=== PATIENT | female | born 1940 | race Caucasian/White ===

== ENCOUNTER 2016-07-22 04:50 | Inpatient (IN) | payer OTHER ==
[2016-06-30 10:44] VITALS: BMI 27.0
--- NOTE | 2016-06-30 11:12 | PAT Medication Instructions ---
Service Date Jun 30, 2016. Current Home Medication List Aspirin (Aspirin Ec), 81 MG PO QPM Atorvastatin (Lipitor), 20 MG PO QPM Cholecalciferol (Vitamin D3), 1 TAB PO QAM Fish Oil (Malvern-3), 1,000 MG PO QAM Ibuprofen (Advil), 200 MG PO TID PRN for RN Multivitamin (Multivitamin), 1 TAB PO QAM Pantoprazole (Protonix), 40 MG PO QPM Resveratrol (Resveratrol), 100 MG PO QPM Sitagliptin-Metformin Hcl (Janumet), 1 TAB PO BID Valsartan (Diovan), 160 MG PO QPM Medication Instructions For Your Scheduled Surgery - Hold the following medications 10 days prior to surgery: Fish Oil (Mal[place]-3), 1,000 MG PO QAM Ibuprofen (Advil), 200 MG PO TID PRN for RN (per surgeon instructions) Resveratrol (Resveratrol), 100 MG PO QPM - Hold the following medications 48 hours prior to surgery: Sitagliptin-Metformin Hcl (Janumet), 1 TAB PO BID - Hold the following medications evening prior to surgery: Valsartan (Diovan), 160 MG PO QPM - Hold the following medications the morning of surgery: Multivitamin (Multivitamin), 1 TAB PO QAM Cholecalciferol (Vitamin D3), 1 TAB PO QAM - Take the following medications as scheduled the night before surgery: Pantoprazole (Protonix), 40 MG PO QPM Atorvastatin (Lipitor), 20 MG PO QPM Aspirin (Aspirin Ec), 81 MG PO QPM If you have any questions please call us at [phone] or [phone] ( [place]) or [phone]
[2016-06-30 11:42] LABS: BASO % 0.6 %; BASO ABS # 0.06 K/uL (0-0.2); COMPLETE YES; EOS % 2.1 %; HEMATOCRIT 39.5 % (37-47); IG% 0.3 %; LYMPH % 26.8 %; LYMPH ABS # 2.84 K/uL (1.2-3.4); MEAN CELL VOLUME 84.8 fL (80-100); MEAN CORPUSCULAR HGB CONC 34.2 g/dl (32-36); MEAN PLATELET VOLUME 9.6 fL (7.4-10.4); MONO % 9.7 %; NEUT % 60.5 %; PLATELET COUNT 286 K/uL (130-400); RED BLOOD COUNT 4.66 M/uL (4.2-5.4); WHITE BLOOD COUNT 10.59 K/uL (4.8-10.8)
[2016-06-30 11:44] LABS: URINE APPEARANCE CLEAR (CLEAR); URINE BILIRUBIN NEG (NEG); URINE COLOR YELLOW; URINE EPITHELIAL CELL AUTO 0-5 /lpf (0-5); URINE NITRITE NEG (NEG); URINE PH 5.5 (4.5-7.5); URINE SPECIFIC GRAVITY 1.002 (1.000-1.030); UROBILINOGEN NEG (NEG); ZZUR CULT IF INDIC CLEAN CATCH YES
[2016-06-30 11:58] LABS: MANUAL MICROSCOPIC REQUIRED? NO; REVIEW REQ? NO
[2016-06-30 11:58] LABS: PROTHROMBIN TIME (PATIENT) 10.6 SECONDS (9.0-12.0)
--- NOTE | 2016-06-30 12:02 | DIAGNOSTIC IMAGING REPORT ---
CHEST PREADMISSION(PA/LAT) CLINICAL HISTORY: PAT preoperative evaluation COMPARISON STUDY: No previous studies for comparison. FINDINGS: The bones soft tissues and hemidiaphragms are normal. The cardiomediastinal silhouette is normal. The lungs are clear. The pulmonary vasculature is normal. IMPRESSION: Negative chest. Electronically signed by: Rex Ochoa M.D. 06/30/2016 12:00 PM Dictated Date/Time: 06/30/2016 12:00 PM
--- NOTE | 2016-07-08 14:49 | HISTORY & PHYSICAL EXAMINATION ---
DATE OF ADMISSION: 07/22/2016 PROCEDURE: Right knee replacement. HISTORY OF PRESENT ILLNESS: Claudette is a pleasant 75-year-old female who presents for preoperative evaluation prior to right knee replacement. Claudette states she has been having pain in this knee for several years now, which has gradually worsened. It has not gotten to the point it is affecting her daily activities including walking, standing, going up and down steps. She has taken oral anti-inflammatories without relief. She has also tried Supartz with no relief. At this point in time, has failed conservative measures and would like to proceed with a right knee replacement. PAST MEDICAL HISTORY: 1. Hypertension. 2. High cholesterol. 3. Diabetes. 4. GERD. ALLERGIES: No known drug allergies. CURRENT MEDICATIONS: 1. Pantoprazole 40 mg daily. 2. Multivitamin. 3. Atorvastatin 20 mg daily. 4. Janumet 50/500 mg twice a day. 5. Diovan 320 mg daily. 6. Vitamin D3. 7. Aspirin 81 mg daily. PAST SURGICAL HISTORY: 1. Bunion surgery both feet. 2. Cholecystectomy. 3. Appendectomy. FAMILY HISTORY: Noncontributory. SOCIAL HISTORY: The patient denies a history of smoking or tobacco use. No alcohol consumption. REVIEW OF SYSTEMS: Otherwise negative. Please see HPI for pertinent positives. PHYSICAL EXAMINATION: GENERAL: Pleasant female in no acute distress, alert and oriented x3. HEAD, EYES, EARS, NOSE, AND THROAT: Normocephalic, atraumatic. CARDIAC: Regular rate and rhythm. No murmurs, rubs or gallops appreciated. Resting pulse 80 beats per minute. LUNGS: Clear to auscultation without rales or wheeze bilaterally. ABDOMEN: Soft, nontender. Bowel sounds present. EXTREMITIES: Right lower extremity is neurovascularly intact. Calves are soft and nontender. DP pulse +2. Demonstrates good quad tone. Straight leg raise without lag. No erythema or warmth. Has mild effusion. Range of motion is 0/3/115, has positive crepitation. IMAGING: Reviewed of her right knee show findings consistent with degenerative joint disease including joint space narrowing, subchondral sclerosis, peripheral osteophytes noted. She has complete loss of joint space of the medial compartment as well as the patellofemoral joint. IMPRESSION: 1. Right knee degenerative joint disease. 2. Past medical history as outlined above. PLAN: Further care discussed with patient. At this point in time, has failed conservative measures and would like to proceed with a right knee replacement. Will place on aspirin 81 mg p.o. b.i.d. for a month postop. Will plan on discharge home with home health physical therapy.
[2016-07-22] VITALS (12 sets, daily range): BP systolic 105–152; BP diastolic 58–87; PULSE 64–78; TEMP 36.2–36.8; O2SAT 94–99; Ht 162.6 cm; Wt 72.9 kg
[~2016-07-22] VITALS: Ht 162.6 cm; Wt 72.9 kg
[~2016-07-22 04:50] MED LIST: ASPI81TA28 PO; ATOR-22 PO; CHOL20007 PO; DVN/160 PO; IBUP-1050 PO; MULT-506 PO; OMEG10007 PO; PANT40TA PO; RESV100C PO; SITA50TA5 PO
[2016-07-22] MEDS ORDERED: ACETAMINOPHEN 500 MG TAB PO SCH (06:00)
[2016-07-22] MEDS ORDERED: METOCLOPRAMIDE HCL 10 MG TAB PO SCH (06:00)
[2016-07-22] MEDS ORDERED: OXYCODONE HCL 10 MG TABCR (OXYCONTIN) PO SCH (06:00)
[2016-07-22] MEDS ORDERED: ROPIVACAINE 5MG/ML 30 ML 150 MG, BUPIVACAINE/EPINEPHR 0.5% MPF 30 ML, KETOROLAC TROMETH... INFIL SCH ×7 (06:00)
[2016-07-22] MEDS ORDERED: LACTATED RINGER'S 1000ML 1,000 ML IV SCH (06:00)
[2016-07-22] MEDS ORDERED: GABAPENTIN 300 MG CAP PO SCH (06:00)
[2016-07-22] MEDS ORDERED: TRANEXAMIC ACID INJ 1,000 MG in SODIUM CHLORIDE 0.9% 100ML 100 ML IV SCH (06:00)
[2016-07-22] MEDS ORDERED: DEXAMETHASONE 4 MG TAB PO SCH (06:00)
[2016-07-22] MEDS ORDERED: CeleBREX 200 MG CAP PO SCH (06:00)
[2016-07-22] MEDS ORDERED: VANCOMYCIN INJ 1,100 MG in SODIUM CHLORIDE 0.9% 250ML 250 ML IV SCH (06:00)
[2016-07-22] MEDS ORDERED: LACTATED RINGER'S 1000ML IV SCH (06:00)
[2016-07-22] MEDS ORDERED: FAMOTIDINE 20 MG TAB PO SCH (06:00)
[2016-07-22] MEDS: TRANEXAMIC ACID INJ 1,000 MG in SODIUM CHLORIDE 0.9% 100ML 100 ML IV SCH ×2 (06:30→07:10)
[2016-07-22] MEDS ORDERED: BUPIVACAINE 0.25% 30 ML VIAL ONE (06:30)
[2016-07-22] MEDS ORDERED: BUPIVACAINE 0.5 % 5 MG/1 ML PF 10ML VIAL ONE (06:30)
[2016-07-22] MEDS ORDERED: POVIDONE-IODINE OP SOLN 30 ML BTL ONE (06:49)
[2016-07-22] MEDS ORDERED: BACITRACIN 50000 UNIT VIAL ONE (06:49)
[2016-07-22] MEDS ORDERED: ORTHO JOINT ANESTHETIC ONE (06:49)
[2016-07-22] MEDS ORDERED: KETAMINE HCL INJ 50 MG/ML 10 ML VIAL ONE (06:52)
[2016-07-22] MEDS ORDERED: FENTANYL CITRATE INJ 50 MCG/1 ML 2 ML VIAL ONE (06:52)
[2016-07-22] MEDS ORDERED: MIDAZOLAM HCL 1 MG/ML 2ML VIAL ONE (06:52)
--- NOTE | 2016-07-22 07:08 | History & Physical Bridge Note ---
H&P Re-Evaluation Bridge Note: I have examined the patient, reviewed the History & Physical and in the interval since the performance of the History & Physical I have noted the following changes of clinical significance: No changes noted
[2016-07-22] MEDS ORDERED: PROPOFOL IV EMULSION 10 MG/ML 20 ML VIAL IV ONE (07:31)
[2016-07-22] MEDS ORDERED: ONDANSETRON INJ 2 MG/ML 2 ML VIAL IV PRN ×2 (07:45→09:00)
[2016-07-22] MEDS ORDERED: FENTANYL CITRATE INJ 50 MCG/1 ML 2 ML VIAL IV PRN (07:45)
[2016-07-22] MEDS ORDERED: EpHEDrine SULFATE INJ 50 MG/ML AMP IV PRN (07:45)
[2016-07-22] MEDS ORDERED: ATROPINE SULFATE 0.1 MG/ML 5ML SYR IV PRN (07:45)
--- NOTE | 2016-07-22 08:31 | [facility] Post Operative Brief Note ---
Immediate Operative Summary Operative Date Jul 22, 2016. Pre-Operative Diagnosis Right Knee Degenerative Joint Disease Post-Operative Diagnosis same as pre-operative Procedure(s) Performed Right Total Knee Arthroplasty Surgeon Dr. Haile Oh Chair Mechanic Surgeon(s) Rex Scruggs PA-C Estimated Blood Loss 5ml Findings severe djd lt knee Specimens A:Right knee bone and tissue Complication(s) None Disposition Recovery Room / PACU
--- NOTE | 2016-07-22 08:51 | OPERATIVE REPORT ---
DATE OF OPERATION: 07/22/2016 PREOPERATIVE DIAGNOSIS: Severe end-stage tricompartmental degenerative joint disease, right knee. POSTOPERATIVE DIAGNOSIS: Severe end-stage degenerative joint disease, right knee. PROCEDURE: Right total knee arthroplasty utilizing Holland \T\ Nephew Journey II patient matched block total knee arthroplasty with size 5 femur, 3 tibia, 12 poly, and 29 oval patella. SURGEON: Haile Oh DO [employer] SALES REPRESENTATIVE: Rex Scruggs PA-C who was necessary for prepping, draping, retraction, wound closure of deep fascia, subQ and skin and was necessary for the case. ESTIMATED BLOOD LOSS: 5 mL. COMPLICATIONS: None. TOURNIQUET TIME: 40 minutes. HISTORY OF PRESENT ILLNESS: The patient is a very pleasant 75-year-old white female with complaints of severe end-stage DJD about her right knee, presents today for right total knee arthroplasty. DESCRIPTION OF PROCEDURE: The patient was properly prepped and draped in supine position for total knee arthroplasty after identifying the appropriate surgical site. An anterior midline incision was made through the subcutaneous tissues down to the region of the extensor mechanism. A medial parapatellar incision was subsequently made. Meticulous hemostasis was obtained and performed at all times. The patella having been subluxed lateralward, medial and lateral meniscal remnants were excised. The patellar cut was then initially made and was sized to the appropriate size. After subluxing the tibia forward the appropriate meniscal fragments having been removed the distal femur was then cut first utilizing a Holland and Nephew block. The distal femoral cuts and chamfer cuts were all made under direct visualization and the proximal tibial osteotomy cut was also made utilizing Holland and Nephew blocks and checked with an extramedullary guide. The appropriate trial components on the femur and tibia were placed. Appropriate trial spacers were used to check flexion and extension gaps. With flexion and extension gaps being equal, the components were then subsequently after thorough irrigation and debridement lavage components were then subsequently cemented in the following order: femur, tibia and patella. Exparel was used for intraoperative anesthesia, the medial parapatellar incision was closed utilizing #1 Vicryl, subQ was closed with 2-0 Vicryl, skin was closed with skin clips. A sterile compression dressing was placed. The patient was taken to recovery room in stable condition. Due to the complex nature of the procedure, the entire surgery was performed with the operational assistance of Rex Scruggs PA-C. The clinical assistant, under direct supervision, was involved in the actual performance of all aspects of the surgical procedure including hemostasis, tissue retraction and incision, instrument management, patient positioning, and wound closure. KELL
[2016-07-22] MEDS ORDERED: SOD PHOSPHATE/SOD BIPHOSPHATE ENEMA 132 ML BTL PR PRN (09:00)
[2016-07-22] MEDS ORDERED: MoRPHine SULFATE 2 MG/ML CARP IV PRN ×2 (09:00→11:00)
[2016-07-22] MEDS ORDERED: BISACODYL 10 MG SUPP PR PRN (09:00)
[2016-07-22] MEDS ORDERED: MAGNESIUM HYDROXIDE SUSP 30 ML UDC PO PRN (09:00)
[2016-07-22] MEDS ORDERED: ALUMINUM/MAGNESIUM/SIMETH (MAALOX MAX) 30 ML UDC PO PRN (09:00)
--- NOTE | 2016-07-22 09:42 | DIAGNOSTIC IMAGING REPORT ---
RIGHT KNEE 1 OR 2 VIEWS ROUTINE CLINICAL HISTORY: AP/LATERAL IN PACU RIGHT KNEE Right pain COMPARISON: None. DISCUSSION: Patient has had a total right knee replacement. Good contact between prosthetic and underlying bone. Surgical drains are in position. There is no evidence for soft tissue swelling. IMPRESSION: Anatomic alignment status post total right knee replacement Electronically signed by: Rex Ochoa M.D. 07/22/2016 9:40 AM Dictated Date/Time: 07/22/2016 9:40 AM
--- NOTE | 2016-07-22 10:03 | Anesthesiology Progress Note ---
Anesthesia Post Op Note Date & Time Jul 22, 2016 at 10:03 Vital Signs Pain Intensity: 0 Vital Signs Past 12 Hours Date Time Temp Pulse Resp B/P Pulse Ox O2 Delivery O2 Flow Rate FiO2 07/22/16 09:55 70 19 117/59 97 Nasal Cannula 2 07/22/16 09:45 36.6 72 19 125/64 97 Nasal Cannula 2 07/22/16 09:35 68 16 118/61 98 Nasal Cannula 2 07/22/16 09:25 62 14 112/58 99 Nasal Cannula 2 07/22/16 09:15 72 12 115/60 98 Nasal Cannula 2 07/22/16 09:05 74 19 110/61 97 Nasal Cannula 2 07/22/16 08:59 36.2 75 15 117/57 99 Nasal Cannula 2 07/22/16 06:03 36.8 66 18 152/72 97 Room Air Notes Mental Status: alert / awake / arousable, participated in evaluation Pt Amnestic to Procedure: Yes Nausea / Vomiting: adequately controlled Pain: adequately controlled Airway Patency, RR, SpO2: stable & adequate BP & HR: stable & adequate Hydration State: stable & adequate Neuraxial Anesthesia: was administered, sensory block is resolving Anesthetic Complications: no major complications apparent
[2016-07-22] MEDS ORDERED: PHARMACY GLYCEMIC MGMT CONSULT PRN (10:39)
[2016-07-22] MEDS: SODIUM CHLORIDE 0.9% 1000ML 1,000 ML IV SCH ×2 (10:59→18:38)
[2016-07-22] MEDS ORDERED: MoRPHine SULFATE 4 MG/ML 1 ML CARP\\VIAL IV PRN (11:00)
[2016-07-22] MEDS ORDERED: MoRPHine SULFATE 10 MG/ML CARP/VIAL IV PRN (11:00)
[2016-07-22] MEDS: PANTOprazole SOD 40 MG TAB PO SCH (11:31)
[2016-07-22] MEDS: MULTIVITAMIN TAB PO SCH (11:32)
[2016-07-22] MEDS: DOCUSATE SODIUM 100 MG CAP PO SCH ×2 (11:32→21:31)
[2016-07-22] MEDS ORDERED: GLUCAGON FOR INJ 1 MG VIAL SQ PRN (11:45)
[2016-07-22] MEDS ORDERED: GLUCOSE 10 TABS/TUBE PO PRN (11:45)
[2016-07-22] MEDS ORDERED: DEXTROSE 50% 50 ML SYR IV PRN (11:45)
[2016-07-22] MEDS ORDERED: GLUCOSE 40% GEL 15 GM TUBE PO PRN (11:45)
[2016-07-22] MEDS: INSULIN ASPART 100 UNITS/ML 3 ML PEN SC SCH ×3 (12:20→21:38)
--- NOTE | 2016-07-22 12:27 | Pharmacy Progress Note ---
Glycemic Control Intl Consult Date of Service Jul 22, 2016. Scope Glycemic Pharmacist consulted by Rex Scruggs PA-C on 07/22/16 for glycemic control and to write orders per [facility] inpatient glycemic control protocol Objective Weight (Kilograms): 72.900 Accuchecks BSG (last 24hrs): Test 07/22/16 05:38 07/22/16 09:05 07/22/16 11:28 Bedside Glucose 124 mg/dl (70-90) 140 mg/dl (70-90) 179 mg/dl (70-90) Recent Pertinent Medications Outpatient Anti-diabetic Regimen: * Janumet 50/500 mg PO BIDM Risk Factors for Insulin Resistance: * Steroids: Dexamethasone 8 mg PO preop X 1 * Recent Surgery: POD#0 * Diet: T2DM Assessment & Plan ASSESSMENT: * 75 yo diabetic F admitted s/p R TKA * Unknown outpatient control- will order A1c with AM labs tomorrow * Expect some degree of steroid-induced hyperglycemia due to preop dexamethasone PO * Initiate weight-based Novolog ACHS * Given age and no ongoing steroids ordered, I will not be as aggressive with carb ratio as I normally would be * ADA & AACE recommend a goal blood sugar range 140-180 mg/dl for the majority of critically ill & non-critically ill patients. However, more stringent targets may be selected in individual cases. Tighten goal to 110-150 mg/dL to facilitate better wound healing. PLAN FOR INPATIENT GLYCEMIC CONTROL: * Hold outpatient oral diabetes medications * Correctional Insulin with NOVOLOG per scale ACHS * Goal Range: Low 110 mg/dL - High 150 mg/dL * Correction Factor: 30 mg/dL/unit * Nutritional / Prandial insulin per carb ratio of 1 unit per 20 grams CHO consumed * A1c with AM labs * Please note that the plan above was derived based on current level of insulin resistance and hospital stress. These recommendations are appropriate for inpatient admission only. Plan of care upon discharge will need to be reassessed to avoid potential outpatient hypo/hyperglycemia. Thank you.
[2016-07-22] MEDS: CLINDAMYCIN IV 600 MG in DEXTROSE 5% ADD-VANTAGE 50ML 50 ML IV SCH ×2 (13:24→21:35)
[2016-07-22] MEDS: ACETAMINOPHEN 500 MG TAB PO SCH ×2 (13:24→21:35)
[2016-07-22] MEDS: OXYCODONE HCL 10 MG TABCR (OXYCONTIN) PO SCH (21:31)
[2016-07-22] MEDS: ATORVASTATIN 20 MG TAB PO SCH (21:31)
[2016-07-22] MEDS: CeleBREX 200 MG CAP PO SCH (21:32)
[2016-07-22] MEDS: VALSARTAN 80 MG TAB PO SCH (21:33)
[2016-07-22] MEDS: SENNA 8.6 MG TAB PO SCH (21:33)
[2016-07-22] MEDS: ASPIRIN 81 MG ECTAB PO SCH (21:34)
[2016-07-23] VITALS (8 sets, daily range): BP systolic 104–146; BP diastolic 56–76; PULSE 58–70; TEMP 36.4–36.8; O2SAT 95–100
[2016-07-23] MEDS: ACETAMINOPHEN 500 MG TAB PO SCH ×3 (05:16→21:36)
[2016-07-23] MEDS: SODIUM CHLORIDE 0.9% 1000ML 1,000 ML IV SCH (05:16)
[2016-07-23 06:40] LABS: HEMATOCRIT 33.4 % (37-47); MEAN CELL VOLUME 83.9 fL (80-100); MEAN CORPUSCULAR HEMOGLOBIN 28.4 pg (25-34); MEAN CORPUSCULAR HGB CONC 33.8 g/dl (32-36); PLATELET COUNT 256 K/uL (130-400); RED BLOOD COUNT 3.98 M/uL (4.2-5.4); WHITE BLOOD COUNT 21.36 K/uL (4.8-10.8)
[2016-07-23 06:45] LABS: PROTHROMBIN TIME (PATIENT) 10.9 SECONDS (9.0-12.0)
--- NOTE | 2016-07-23 07:06 | Orthopedic Progress Note ---
Orthopedic Progress Note Date of Service Jul 23, 2016. Subjective Post OP Day: 1 (POD #1 s/p Right TKA) Reports: feeling well, pain controlled w PO medications, Denies: SOB, calf pain , chest pain, complaints, light headedness, nausea / vomiting Objective calves soft nontender, N/V intact, capillary refill less than 2 sec., dressing C /D/I, A&O x3, toes mobile, hemovac drainage (145cc / 8 hours) Date Time Temp Pulse Resp B/P Pulse Ox O2 Delivery O2 Flow Rate FiO2 07/23/16 03:29 36.4 70 15 146/63 95 Room Air 07/22/16 23:30 36.7 78 15 121/61 95 Room Air 07/22/16 19:50 Room Air 07/22/16 19:34 36.7 74 16 136/87 95 Room Air 07/22/16 15:45 36.3 68 16 109/67 96 Nasal Cannula 1.2 07/22/16 15:32 66 16 96 Nasal Cannula 1.0 07/22/16 12:54 36.5 68 17 105/62 98 Nasal Cannula 2.0 07/22/16 12:05 36.5 76 18 113/58 98 Room Air 07/22/16 11:34 64 16 94 Nasal Cannula 1.0 07/22/16 11:06 36.2 67 17 116/69 96 Nasal Cannula 07/22/16 10:35 99 Nasal Cannula 2.0 07/22/16 10:33 36.4 65 17 110/66 96 Nasal Cannula 2.0 07/22/16 10:29 99 Nasal Cannula 2.0 07/22/16 10:05 36.7 71 18 107/69 99 Nasal Cannula 2.0 07/22/16 09:55 70 19 117/59 97 Nasal Cannula 2 07/22/16 09:45 36.6 72 19 125/64 97 Nasal Cannula 2 07/22/16 09:35 68 16 118/61 98 Nasal Cannula 2 07/22/16 09:25 62 14 112/58 99 Nasal Cannula 2 07/22/16 09:15 72 12 115/60 98 Nasal Cannula 2 07/22/16 09:05 74 19 110/61 97 Nasal Cannula 2 07/22/16 08:59 36.2 75 15 117/57 99 Nasal Cannula 2 Laboratory Results 24 Hours: Test 07/23/16 06:06 Hematocrit 33.4 % Hemoglobin 11.3 g/dL Prothromb Time International Ratio 1.0 Prothrombin Time 10.9 SECONDS Assessment & Plan Assessment: POD #1 s/p Right TKA -PT/OT -dvt proph with BONITA/SCD/ASA -plan for d/c home with HHPT when stable 1. Hypertension. 2. High cholesterol. 3. Diabetes- pharm consult for SSI 4. GERD. Discharge Planning Discharge Planning: home with home health DVT Prophylaxis: TEDs, SCDs, ASA Therapy: Physical Therapy
[2016-07-23 07:07] LABS: CALCIUM 8.1 mg/dl (8.5-10.1); CREATININE 0.82 mg/dl (0.60-1.20)
--- NOTE | 2016-07-23 07:18 | Discharge Instructions ---
Discharge Instructions Date of Service Jul 23, 2016. Admission Reason for Admission: Right Knee Degenerative Joint Disease Discharge Discharge Diagnosis / Problem: Right Total Knee Replacement Discharge Goals Goal(s): Decrease discomfort, Improve function, Increase independence Activity Recommendations Activity Limitations: as noted below Weightbearing Status: Right weightbearing (as tolerated) . Instructions / Follow-Up Instructions / Follow-Up ACTIVITY RECOMMENDATIONS: SELF CARE INSTRUCTIONS AFTER TOTAL KNEE REPLACEMENT A. You may need to continue a physical therapy program after discharge from the hospital. There are several options available to you. Your doctor will assist you in selecting the best one for you. 1. An out-patient facility 2 to 3 times a week for therapy or home therapy. 2. Continue working on all exercises taught to you in the hospital. Your goals should be to increase bending of your knee to 90 degrees and beyond and to fully straighten your knee. B. You may progress at your own pace from walking with a walker or crutches to a cane; then to no assistive devices. C. Make walking a part of your daily routine. Be up as much as comfortable with rest periods throughout the day. Rest with leg elevation is very important. Use the ice wrap frequently for the first 3-4 weeks. D. There are no restrictions on activities. You may ride in a car, shop, participate in ammunition assembly ii laborer and all social activities. E. Wear the long elastic stockings (BONITA hose) 20 hours a day for 2 weeks after surgery. They can be removed several times a day for laundering and for a bath. F. You may shower, no tub baths until cleared by your doctor. SPECIAL CARE INSTRUCTIONS: VERY IMPORTANT TO READ AND REVIEW A. There are a few signs you need to watch for after you are home. Call [facility] [place] if you notice any of the followin. Increased severe knee pain. Some pain is expected especially when you exercise. 2. Increased swelling in your leg or knee; pain or swelling of the calf muscle in either lower leg. 3. Any fluid drainage from the incision. 4. Shortness of breath or chest pain. B. Please call [facility] at if you have any concerns or questions about your operation or recovery. The doctor or his nurse will return your call promptly. C. You must take antibiotics before dental work, bladder, bowel or other surgery. Your doctor will provide you with a permanent care to carry describing this precaution. IMPORTANT: * REMEMBER TO TAKE ASPIRIN, 81 MG, TWICE DAILY FOR 4 WEEKS UNLESS OTHERWISE DIRECTED. THIS IS YOUR BLOOD THINNER. * HIGH RISK PATIENTS MAY BE PRESCRIBED A STRONGER BLOOD THINNER. THIS WILL BE PROVIDED AT DISCHARGE. * CALL IF INCREASED PAIN, REDNESS, DRAINAGE OR FEVER GREATER THAT 101. * WEAR BONITA HOSE 20 HOURS PER DAY FOR 2 WEEKS. * DERMABOND Prineo- This is a mesh tape dressing that is covered with glue. It should remain in place until the incision is properly healed, usually 10-14 days. This dressing is designed to naturally slough off. You may trim the excess mesh tape as it peels off. Incision may be briefly wet in a shower. Dry immediately by blotting with a clean, dry towel. Do not bath or swim until instructed by your doctor. Do not scratch, rub, or pick at the dressing. Do not apply any topical ointments or lotions until dressing is completely removed and/or instructed by your doctor. There may be a small piece of suture material at one end of your incision. Do not pull or trim this. If it is bothersome or catching on clothing, you may cover it with a band-aid. FOLLOW UP VISIT: If appointment is not already scheduled: Please call [facility] [place] to make a follow-up appointment for 2 weeks after your surgery at . Current Hospital Diet Patient's current hospital diet: Diabetes Type 2 Diet Discharge Diet Recommended Diet: Diabetes Type 2 Diet Procedures Procedures Performed: Right Total Knee Arthroplasty Pending Studies Studies pending at discharge: no Laboratory Results Hemoglobin A1c Test 07/23/16 06:06 Range/Units Medical Emergencies . Who to Call and When: Medical Emergencies: If at any time you feel your situation is an emergency, please call 911 immediately. . Non-Emergent Contact Non-Emergency issues call your: Primary Care Provider, Surgeon . "Provider Documentation" section prepared by Rex Scruggs. VTE Core Measure Inpt VTE Proph given/why not?: Other Anticoagulation (ASA 81mg po bid x 1 month ), T.E.D. Stockings, SCD's [place] Drug Monitoring Program Search Results: patient reviewed within database (no prescriptions filled in the last 4 months.), no issues identified
[2016-07-23 07:27] LABS: ESTIMATED AVERAGE GLUCOSE 143 mg/dl; HA1C FLAG Normal (Normal)
[2016-07-23] MEDS: DOCUSATE SODIUM 100 MG CAP PO SCH ×2 (08:36→21:27)
[2016-07-23] MEDS: MULTIVITAMIN TAB PO SCH (08:36)
[2016-07-23] MEDS: PANTOprazole SOD 40 MG TAB PO SCH (08:37)
[2016-07-23] MEDS: CeleBREX 200 MG CAP PO SCH ×2 (08:37→21:24)
[2016-07-23] MEDS: ASPIRIN 81 MG ECTAB PO SCH ×2 (08:37→21:27)
[2016-07-23] MEDS: INSULIN ASPART 100 UNITS/ML 3 ML PEN SC SCH ×4 (08:41→21:37)
[2016-07-23] MEDS: OXYCODONE HCL 10 MG TABCR (OXYCONTIN) PO SCH ×2 (08:42→21:35)
--- NOTE | 2016-07-23 13:45 | Anesthesiology Progress Note ---
Anesthesia Post Op Note Date & Time Jul 23, 2016 at 13:44 Vital Signs Pain Intensity: 0.0 Vital Signs Past 12 Hours Date Time Temp Pulse Resp B/P Pulse Ox O2 Delivery O2 Flow Rate FiO2 07/23/16 11:36 36.5 59 18 142/72 97 Room Air 07/23/16 08:53 95 Room Air 07/23/16 08:00 Room Air 07/23/16 07:53 36.7 58 14 104/56 95 Room Air 07/23/16 03:29 36.4 70 15 146/63 95 Room Air Notes Mental Status: alert / awake / arousable, participated in evaluation Pt Amnestic to Procedure: Yes Nausea / Vomiting: adequately controlled Pain: adequately controlled Airway Patency, RR, SpO2: stable & adequate BP & HR: stable & adequate Hydration State: stable & adequate Neuraxial Anesthesia: sensory block resolved Anesthetic Complications: no major complications apparent
--- NOTE | 2016-07-23 14:53 | Pharmacy Progress Note ---
Glycemic Control: Progress Nt Date of Service Jul 23, 2016. Scope Glycemic Pharmacist consulted for glycemic control and to write orders per [facility] inpatient glycemic control protocol. Objective Accuchecks BSG (last 24hrs): Test 07/22/16 16:43 07/22/16 20:45 07/23/16 06:06 07/23/16 08:29 Bedside Glucose 252 mg/dl (70-90) 197 mg/dl (70-90) 143 mg/dl (70-90) Random Glucose 150 mg/dl (70-99) Test 07/23/16 11:19 Bedside Glucose 158 mg/dl (70-90) Laboratory Data (last 24hrs) Test 07/23/16 06:06 Anion Gap 9.0 mmol/L BUN/Creatinine Ratio 23.0 Blood Urea Nitrogen 19 mg/dl Creatinine 0.82 mg/dl Hemoglobin A1c 6.6 % Potassium Level 4.0 mmol/L Sodium Level 140 mmol/L White Blood Count 21.36 K/uL HbA1c: Test 07/23/16 06:06 Hemoglobin A1c 6.6 % (4.5-5.6) H Recent Pertinent Medications Outpatient Anti-diabetic Regimen: * Janumet 50-500mg PO BIDM The patient is currently receiving: * Basal insulin: N/A none indicated * Correctional Insulin: Novolog Correction per scale ACHS Goal Range: Low 110 mg/dL - High 150 mg/dL Correction Factor: 30 mg/dL/unit * Prandial insulin: Per carb ratio of 1 unit per 20 grams CHO consumed * Oral Agents: On hold for admission Risk Factors for Insulin Resistance: * Steroids: preoperatively * Recent Surgery * Diet Assessment & Plan ASSESSMENT: * 75yo T2DM female with adequate degree of outpatient control * Patient is maintained on oral agents as an outpatient which were held post- operatively. Pt initiated on weight based SQ bolus insulin with CF/CR. * POD#1 today, pt tolerating PO and renal function is stable * Will re-initiate oral agents * Stop CR to prevent hypo with oral agents * ADA & AACE recommend a goal blood sugar range 140-180 mg/dl for the majority of critically ill & non-critically ill patients. However, more stringent targets may be selected in individual cases. Will utilize more stringent target range of 110-150mg/dl based on tight glycemic control at baseline and to facilitate healing post-operatively. PLAN FOR INPATIENT GLYCEMIC CONTROL: * Resume outpatient oral diabetes medications * Janumet 50-500mg PO BID (pharmacy will supply individual components as the combo product is not-stocked/non-formulary) * NOVOLOG per scale ACHS or Q6hrs while NPO * Goal Range: Low 110 mg/dL - High 150 mg/dL * Correction Factor: 40 mg/dL/unit * D.C Nutritional / Prandial insulin per carb ratio once orals resumed * Please note that the plan above was derived based on current level of insulin resistance and hospital stress. These recommendations are appropriate for inpatient admission only. Plan of care upon discharge will need to be reassessed to avoid potential outpatient hypo/hyperglycemia. Thank you.
[2016-07-23] MEDS: METFORMIN HCL 500 MG TAB PO SCH (18:08)
[2016-07-23] MEDS: SITAGLIPTIN 25 MG TAB PO SCH (18:08)
[2016-07-23] MEDS: OXYCODONE HCL IR 5 MG TAB (IMMEDIATE RELEASE) PO PRN (19:59)
[2016-07-23] MEDS: VALSARTAN 80 MG TAB PO SCH (21:26)
[2016-07-23] MEDS: ATORVASTATIN 20 MG TAB PO SCH (21:27)
[2016-07-23] MEDS: SENNA 8.6 MG TAB PO SCH (21:28)
[2016-07-24] MEDS: ACETAMINOPHEN 500 MG TAB PO SCH (05:33)
[2016-07-24 06:50] VITALS: BP 145/84; PULSE 64; TEMP 36.6; O2SAT 95
[2016-07-24 07:07] VITALS: BP 135/72; PULSE 78; TEMP 36.6; O2SAT 97
[2016-07-24] MEDS: INSULIN ASPART 100 UNITS/ML 3 ML PEN SC SCH ×2 (07:22→12:45)
[2016-07-24] MEDS: ASPIRIN 81 MG ECTAB PO SCH (07:23)
[2016-07-24] MEDS: MULTIVITAMIN TAB PO SCH (07:23)
[2016-07-24] MEDS: PANTOprazole SOD 40 MG TAB PO SCH (07:23)
[2016-07-24] MEDS: SITAGLIPTIN 25 MG TAB PO SCH (07:23)
[2016-07-24] MEDS: DOCUSATE SODIUM 100 MG CAP PO SCH (07:24)
[2016-07-24] MEDS: CeleBREX 200 MG CAP PO SCH (07:24)
[2016-07-24] MEDS: METFORMIN HCL 500 MG TAB PO SCH (07:24)
[2016-07-24] MEDS: OXYCODONE HCL 10 MG TABCR (OXYCONTIN) PO SCH (07:27)
--- NOTE | 2016-07-24 07:28 | Orthopedic Progress Note ---
Orthopedic Progress Note Date of Service Jul 24, 2016. Subjective Post OP Day: 2 Reports: feeling well, pain controlled w PO medications, Denies: SOB, calf pain , chest pain, complaints, light headedness, nausea / vomiting Objective calves soft nontender, capillary refill less than 2 sec., incision C/D/I, A&O x3 , toes mobile Date Time Temp Pulse Resp B/P Pulse Ox O2 Delivery O2 Flow Rate FiO2 07/24/16 07:16 Room Air 07/24/16 07:07 36.6 78 18 135/72 97 Room Air 07/24/16 06:50 36.6 64 16 145/84 95 Room Air 07/23/16 23:59 Room Air 07/23/16 22:57 36.8 66 16 139/73 96 Room Air 07/23/16 21:26 62 129/76 07/23/16 18:00 Room Air 07/23/16 15:36 36.4 66 16 124/75 97 Room Air 07/23/16 11:36 36.5 59 18 142/72 97 Room Air 07/23/16 08:53 95 Room Air 07/23/16 08:00 Room Air 07/23/16 07:53 36.7 58 14 104/56 95 Room Air Assessment & Plan Assessment: POD #2 s/p Right TKA -PT/OT -dvt proph with BONITA/SCD/ASA -plan for d/c home with HHPT when stable, likely after PT today 1. Hypertension. 2. High cholesterol. 3. Diabetes- pharm consult for SSI 4. GERD. Discharge Planning Discharge Planning: home with home health DVT Prophylaxis: TEDs, SCDs, ASA Therapy: Physical Therapy
[2016-07-24] MEDS ORDERED: RXC5 PO (07:30)
[2016-07-24] MEDS ORDERED: ASPEC81 PO (07:30)
[2016-07-24] MEDS ORDERED: ACET-1138 PO (07:30)
[2016-07-24] MEDS ORDERED: OXYSR10 PO (07:30)
[2016-07-24] MEDS ORDERED: CLB200 PO (07:30)
--- NOTE | 2016-07-24 07:33 | Discharge Summary ---
Orthopedic Discharge Summary Admission Date/Reason Jul 22, 2016 at 09:02 Right Knee Degenerative Joint Disease. Discharge Date/Disposition Jul 24, 2016 Home with services Diagnosis Principal Diagnosis: right knee osteoarthritis Procedure(s) Performed Right total knee arthroplasty utilizing [place] \T\ [facility] II patient matched block total knee arthroplasty with size 5 femur, 3 tibia, 12 poly, and 29 oval patella. Consultations NONE Medication Reconciliation New Medications: Acetaminophen (Tylenol Extra Strength) 500 Mg Tab 1000 MG PO Q8H, #126 TAB Aspirin (Aspirin EC Low Dose) 81 Mg Ectab 81 MG PO BID for 30 Days Celecoxib (Celebrex) 200 Mg Cap 200 MG PO BID, #60 CAP Oxycodone HCl (Oxycontin) 10 Mg Tabcr 10 MG PO Q12, #20 Oxycodone HCl (Oxycodone HCl) 5 Mg Tab 5-10 MG PO Q4H PRN for Pain, #60 TAB Continued Medications: Atorvastatin (Lipitor) 20 Mg Tab 20 MG PO QPM, TAB Cholecalciferol (Vitamin D3) 2,000 Unit Tab 1 TAB PO QAM for 90 Days, #90 TAB 3 Refills Fish Oil (Spalding-3) 1 Ea Cap 1000 MG PO QAM, CAP Multivitamin (Multivitamin) Tab 1 TAB PO QAM, TAB Pantoprazole (Protonix) 40 Mg Tab 40 MG PO QPM, #30 TAB Resveratrol (Resveratrol) 100 Mg Cap 100 MG PO QPM Sitagliptin-Metformin Hcl (Janumet) 1 Tab Tab 1 TAB PO BID for 90 Days, #180 TAB 3 Refills 50/500 MG Valsartan (Diovan) 160 Mg Tab 160 MG PO QPM, TAB Discontinued Medications: Aspirin (Aspirin Ec) 81 Mg Tab 81 MG PO QPM Ibuprofen (Advil) 200 Mg Tab 200 MG PO TID PRN for RN, TAB Admission Physical Exam As per Admitting History & Physical. Hospital Course Patient was a same day admission after undergoing a successful right TKA. she tolerated the procedure well. Post-operatively, her activity was progressed and well tolerated. Please refer to daily progress notes and PT notes for complete details. After exam on 07/24/16, patient felt to be stable for discharge home with home health PT. Patient will f/u in the office in 2 weeks for further evaluation including x-rays and incision check, sooner if having any issues or concerns. Below are pertinent labs/studies during their hospital stay: Last Resulted CBC 07/23/16 06:06 Last Resulted BMP 07/23/16 06:06 Last Vital Signs Documentation Date Time Temp Pulse Resp B/P Pulse Ox O2 Delivery O2 Flow Rate FiO2 07/24/16 07:16 Room Air 07/24/16 07:07 36.6 78 18 135/72 97 07/22/16 15:45 1.2 Discharge Instructions ACTIVITY RECOMMENDATIONS: SELF CARE INSTRUCTIONS AFTER TOTAL KNEE REPLACEMENT A. You may need to continue a physical therapy program after discharge from the hospital. There are several options available to you. Your doctor will assist you in selecting the best one for you. 1. An out-patient facility 2 to 3 times a week for therapy or home therapy. 2. Continue working on all exercises taught to you in the hospital. Your goals should be to increase bending of your knee to 90 degrees and beyond and to fully straighten your knee. B. You may progress at your own pace from walking with a walker or crutches to a cane; then to no assistive devices. C. Make walking a part of your daily routine. Be up as much as comfortable with rest periods throughout the day. Rest with leg elevation is very important. Use the ice wrap frequently for the first 3-4 weeks. D. There are no restrictions on activities. You may ride in a car, shop, participate in partner integration planner and all social activities. E. Wear the long elastic stockings (BONITA hose) 20 hours a day for 2 weeks after surgery. They can be removed several times a day for laundering and for a bath. F. You may shower, no tub baths until cleared by your doctor. SPECIAL CARE INSTRUCTIONS: VERY IMPORTANT TO READ AND REVIEW A. There are a few signs you need to watch for after you are home. Call [facility] if you notice any of the followin. Increased severe knee pain. Some pain is expected especially when you exercise. 2. Increased swelling in your leg or knee; pain or swelling of the calf muscle in either lower leg. 3. Any fluid drainage from the incision. 4. Shortness of breath or chest pain. B. Please call [facility] at if you have any concerns or questions about your operation or recovery. The doctor or his nurse will return your call promptly. C. You must take antibiotics before dental work, bladder, bowel or other surgery. Your doctor will provide you with a permanent care to carry describing this precaution. IMPORTANT: * REMEMBER TO TAKE ASPIRIN, 81 MG, TWICE DAILY FOR 4 WEEKS UNLESS OTHERWISE DIRECTED. THIS IS YOUR BLOOD THINNER. * HIGH RISK PATIENTS MAY BE PRESCRIBED A STRONGER BLOOD THINNER. THIS WILL BE PROVIDED AT DISCHARGE. * CALL IF INCREASED PAIN, REDNESS, DRAINAGE OR FEVER GREATER THAT 101. * WEAR BONITA HOSE 20 HOURS PER DAY FOR 2 WEEKS. * DERMABOND Prineo- This is a mesh tape dressing that is covered with glue. It should remain in place until the incision is properly healed, usually 10-14 days. This dressing is designed to naturally slough off. You may trim the excess mesh tape as it peels off. Incision may be briefly wet in a shower. Dry immediately by blotting with a clean, dry towel. Do not bath or swim until instructed by your doctor. Do not scratch, rub, or pick at the dressing. Do not apply any topical ointments or lotions until dressing is completely removed and/or instructed by your doctor. There may be a small piece of suture material at one end of your incision. Do not pull or trim this. If it is bothersome or catching on clothing, you may cover it with a band-aid. FOLLOW UP VISIT: If appointment is not already scheduled: Please call [facility] to make a follow-up appointment for 2 weeks after your surgery at .
[2016-07-24] MEDS: OXYCODONE HCL IR 5 MG TAB (IMMEDIATE RELEASE) PO PRN (09:39)
[2016-07-24 11:58] VITALS: BP 135/72; PULSE 78; TEMP 36.6; O2SAT 97
== END 2016-07-24 13:32 | disposition home health service (06) | DRG 470 ==
LOC: ENRESERVTM → ENRESERVDT → C.ACU 04:50 → C.3E 09:02
PROVIDERS: ADMIT Orthopaedic Surgery; ATTEND Orthopaedic Surgery
PROC: 0SRC0J9 Replacement of Right Knee Joint with Synthetic Substitute, Cemented, Open Approach (ICD-10-PCS; principal; 2016-07-22 07:15)
DX: M17.11 Unilateral primary osteoarthritis, right knee (principal); K21.9 Gastro-esophageal reflux disease without esophagitis; E78.00 Pure hypercholesterolemia, unspecified; I10 Essential (primary) hypertension; E11.9 Type 2 diabetes mellitus without complications; M54.5 Low back pain; M54.10 Radiculopathy, site unspecified; M48.00 Spinal stenosis, site unspecified; Z79.82 Long term (current) use of aspirin; Z79.1 Long term (current) use of non-steroidal anti-inflammatories (NSAID); Z79.84 Long term (current) use of oral hypoglycemic drugs; Z79.899 Other long term (current) drug therapy